=== PATIENT | female | born 1970 | race Caucasian/White ===

== ENCOUNTER 2016-06-04 03:30 | Emergency (ER) | payer MEDICAID ==
[~2016-06-04] VITALS: Ht 157.5 cm; Wt 82.5 kg
[~2016-06-04 03:30] MED LIST: CARAFATE1 GM PO; CREON1 EC2 PO; LOSARTAN POTASS50 M1 PO; LOVASTATIN20 MG PO; NORCO1 TA2 PO; PROTONIX20 MG PO
[2016-06-04 05:30] VITALS: BP 113/76
== END 2016-06-04 05:30 | disposition home or self-care (01) ==
LOC: ED 03:30
DX: G47.00 Insomnia, unspecified (principal); F41.9 Anxiety disorder, unspecified; I10 Essential (primary) hypertension

== ENCOUNTER 2017-06-23 14:02 | Emergency (ER) | payer MEDICAID ==
[~2017-06-23] VITALS: Ht 157.5 cm; Wt 66.7 kg
[2017-06-23 16:04] LABS: microscopic required? NO
[2017-06-23 16:13] LABS: BASOPHIL % 0.6 % (0-2); PLATELET COUNT 263 x10^3mcL (130-400); RED CELL DISTRIBUTION WIDTH 14.2 % (11.5-14.5)
[2017-06-23 16:25] LABS: urine erythrocyte NEGATIVE (NEGATIVE)
[2017-06-23 16:30] LABS: CALCIUM 8.9 mg/dL (8.5-10.1); CARBON DIOXIDE 27.2 mmol/L (21-32); CHLORIDE SERUM 108 mmol/L (98-107); CREATININE SERUM 0.6 mg/dL (0.6-1.0); GFR1 > 60 mL/min; GLUCOSE SERUM 94 mg/dL (74-106); POTASSIUM SERUM 3.4 mmol/L (3.5-5.1); SODIUM SERUM 146 mmol/L (136-145)
[2017-06-23 16:36] LABS: ALBUMIN 3.7 g/dL (3.4-5.0); ALKALINE PHOSPHATASE 78 U/L (46-116); ALT/SGPT 11 U/L (14-59); AST/SGOT 8 U/L (15-37); BILIRUBIN TOTAL 0.11 mg/dL (0.20-1.00); CHOLESTEROL 168 mg/dL (<200); HDL CHOLESTEROL 79 mg/dL (40-60); TOTAL PROTEIN, SERUM 7.1 g/dL (6.4-8.2)
[2017-06-23 18:00] VITALS: BP 131/90
== END 2017-06-23 18:00 | disposition home or self-care (01) ==
LOC: ED 14:02
PROVIDERS: Emergency Medicine
DX: B34.9 Viral infection, unspecified (principal); I10 Essential (primary) hypertension; Z88.6 Allergy status to analgesic agent; Z88.5 Allergy status to narcotic agent; Z88.8 Allergy status to other drugs, medicaments and biological substances
CPT/HCPCS: 83880; 87804; J2405; J3010; J7030

== ENCOUNTER 2017-09-05 09:27 | Emergency (ER) | payer MEDICAID ==
[~2017-09-05] VITALS: Ht 160 cm; Wt 73.9 kg
[2017-09-05 12:03] LABS: BASOPHIL % 1.1 % (0-2); PLATELET COUNT 333 x10^3mcL (130-400)
[2017-09-05 12:15] LABS: CALCIUM 9.5 mg/dL (8.5-10.1); CARBON DIOXIDE 29.1 mmol/L (21-32); CHLORIDE SERUM 105 mmol/L (98-107); CREATININE SERUM 0.9 mg/dL (0.6-1.0); GFR1 > 60 mL/min; GLUCOSE SERUM 90 mg/dL (74-106); POTASSIUM SERUM 4.4 mmol/L (3.5-5.1); SODIUM SERUM 139 mmol/L (136-145)
[2017-09-05 12:20] LABS: ALBUMIN 4.1 g/dL (3.4-5.0); ALKALINE PHOSPHATASE 89 U/L (46-116); ALT/SGPT 16 U/L (14-59); AMYLASE 72 U/L (25-115); AST/SGOT 15 U/L (15-37); BILIRUBIN TOTAL 0.28 mg/dL (0.20-1.00); LIPASE 123 IU/L (73-393); TOTAL PROTEIN, SERUM 7.8 g/dL (6.4-8.2)
[2017-09-05 12:25] LABS: RED CELL DISTRIBUTION WIDTH 16.2 % (11.5-14.5)
[2017-09-05 14:13] VITALS: BP 135/79
== END 2017-09-05 14:13 | disposition home or self-care (01) ==
LOC: ED 09:27
PROVIDERS: Specialist
PROC: 3E033GC Introduction of Other Therapeutic Substance into Peripheral Vein, Percutaneous Approach (ICD-10-PCS; principal; 2017-09-05)
PROC: BW21ZZZ Computerized Tomography (CT Scan) of Abdomen and Pelvis (ICD-10-PCS; 2017-09-05)
DX: K59.00 Constipation, unspecified (principal); I10 Essential (primary) hypertension; E07.9 Disorder of thyroid, unspecified; F41.9 Anxiety disorder, unspecified; F99 Mental disorder, not otherwise specified
CPT/HCPCS: 83880; J2405; J3010; J7030; Q0092

== ENCOUNTER 2017-11-01 08:16 | Inpatient (IN) | payer MEDICAID ==
[~2017-11-01] VITALS: Ht 154.9 cm; Wt 74.6 kg
[2017-11-01 08:58] LABS: PLATELET COUNT 332 x10^3mcL (130-400)
[2017-11-01 09:12] LABS: RED CELL DISTRIBUTION WIDTH 17.3 % (11.5-14.5)
[2017-11-01 09:13] LABS: CALCIUM 9.5 mg/dL (8.5-10.1); CARBON DIOXIDE 27.4 mmol/L (21-32); CHLORIDE SERUM 102 mmol/L (98-107); CREATININE SERUM 0.9 mg/dL (0.6-1.0); GFR1 > 60 mL/min; GLUCOSE SERUM 84 mg/dL (74-106); POTASSIUM SERUM 3.3 mmol/L (3.5-5.1); SODIUM SERUM 137 mmol/L (136-145)
[2017-11-01 09:18] LABS: ALBUMIN 4.1 g/dL (3.4-5.0); ALKALINE PHOSPHATASE 76 U/L (46-116); ALT/SGPT 15 U/L (14-59); AST/SGOT 12 U/L (15-37); BILIRUBIN TOTAL 0.4 mg/dL (0.20-1.00); LIPASE 122 IU/L (73-393); TOTAL PROTEIN, SERUM 7.8 g/dL (6.4-8.2)
[2017-11-01 10:19] LABS: BAND NEUTROPHIL 0 % (0-10); BASOPHIL 2 % (0-2); MONOCYTE 9 % (0-7); PLATELET MORPHOLOGY PLATELETS NORMAL; SEGMENTED NEUTROPHILS 52 % (37-75); rbc morphology (normal/abnorm) ABNORMAL (NORMAL)
[2017-11-01] MEDS ORDERED: CRESTOR5 M1 (11:59)
[2017-11-01] MEDS ORDERED: NOR5 (11:59)
[2017-11-01] MEDS ORDERED: HYZAAR1 TAB (11:59)
[2017-11-01] MEDS ORDERED: PEPTO BISM262 MG/11 (12:00)
[2017-11-01] MEDS ORDERED: ZANAFLEX CAPSULE4 MG (12:01)
[2017-11-01 12:55] LABS: MAGNESIUM 1.7 mg/dL (1.8-2.4); PHOSPHOROUS 3.7 mg/dL (2.5-4.9)
[2017-11-01 13:06] LABS: FREE T4 0.99 ng/dL (0.76-1.46); FREE THYROXINE INDEX 2.5 ug/dL (1.4-4.5); T4(THYROXINE) 6.9 ug/dL (4.7-13.3)
[2017-11-01 13:07] LABS: T3 TOTAL 1.21 ng/mL
[2017-11-01 13:13] VITALS: BP 120/74
[2017-11-01 15:33] LABS: UA SPECIFIC GRAVITY >=1.030 (1.005-1.035); microscopic required? NO; urine erythrocyte NEGATIVE (NEGATIVE)
[2017-11-01 21:23] VITALS: BP 113/69
[2017-11-02 05:11] VITALS: BP 124/81
[2017-11-02 07:01] LABS: PLATELET COUNT 284 x10^3mcL (130-400)
[2017-11-02 07:03] LABS: CALCIUM 8.4 mg/dL (8.5-10.1); CARBON DIOXIDE 27.5 mmol/L (21-32); CHLORIDE SERUM 108 mmol/L (98-107); CREATININE SERUM 0.7 mg/dL (0.6-1.0); GFR1 > 60 mL/min; GLUCOSE SERUM 75 mg/dL (74-106); POTASSIUM SERUM 3.5 mmol/L (3.5-5.1); SODIUM SERUM 141 mmol/L (136-145)
[2017-11-02 07:05] LABS: RED CELL DISTRIBUTION WIDTH 17.1 % (11.5-14.5)
[2017-11-02 08:31] VITALS: BP 115/78
[2017-11-02 09:04] LABS: ATYPICAL LYMPH 2 %; BAND NEUTROPHIL 0 % (0-10); BASOPHIL 0 % (0-2); MONOCYTE 7 % (0-7); SEGMENTED NEUTROPHILS 39 % (37-75); rbc morphology (normal/abnorm) ABNORMAL (NORMAL)
[2017-11-02 09:05] LABS: PLATELET MORPHOLOGY PLATELETS NORMAL
[2017-11-02 14:07] VITALS: BP 115/78
== END 2017-11-02 14:27 | disposition home or self-care (01) | DRG 249 ==
LOC: ED 08:16 → MU 12:05
PROVIDERS: Emergency Medicine; Family Medicine
DX: A08.4 Viral intestinal infection, unspecified (principal); C73 Malignant neoplasm of thyroid gland; D64.9 Anemia, unspecified; E86.0 Dehydration; E78.5 Hyperlipidemia, unspecified; E87.6 Hypokalemia; K21.9 Gastro-esophageal reflux disease without esophagitis; I10 Essential (primary) hypertension
CPT/HCPCS: 84439; 87046; 87046-59; C9113; J1170; J1200; J1644; J2550; J2765; J3010; J3480; J7030; Q0092

== ENCOUNTER 2018-02-19 16:19 | Emergency (ER) | payer MEDICAID ==
[~2018-02-19] VITALS: Ht 157.5 cm; Wt 71.7 kg
[~2018-02-19 16:19] MED LIST changes: +CRESTOR5 M1; +HYZAAR1 TAB; +NOR5; +PEPTO BISM262 MG/11; +ZANAFLEX CAPSULE4 MG
[2018-02-19 16:34] VITALS: Ht 157.5 cm; Wt 71.7 kg
[2018-02-19 17:50] VITALS: BP 128/78
== END 2018-02-19 17:50 | disposition home or self-care (01) ==
LOC: ED 16:19
DX: S61.251A Open bite of left index finger without damage to nail, initial encounter (principal); T63.091A Toxic effect of venom of other snake, accidental (unintentional), initial encounter; I10 Essential (primary) hypertension; F41.9 Anxiety disorder, unspecified; Z88.6 Allergy status to analgesic agent; Z88.5 Allergy status to narcotic agent; Z88.8 Allergy status to other drugs, medicaments and biological substances; Z90.89 Acquired absence of other organs; Z98.890 Other specified postprocedural states; Y92.89 Other specified places as the place of occurrence of the external cause
CPT/HCPCS: 90715

== ENCOUNTER 2018-11-25 07:16 | Emergency (ER) | payer MEDICAID ==
[~2018-11-25] VITALS: Ht 154.9 cm; Wt 71.2 kg
[2018-11-25 07:20] VITALS: Ht 154.9 cm; Wt 71.2 kg
[2018-11-25 07:49] LABS: PLATELET COUNT 247 x10^3mcL (130-400)
[2018-11-25 07:51] LABS: BASOPHIL % 4.7 % (0-2); RED CELL DISTRIBUTION WIDTH 15.3 % (11.5-14.5)
[2018-11-25 08:00] LABS: CALCIUM 8.4 mg/dL (8.5-10.1); CARBON DIOXIDE 24.9 mmol/L (21-32); CHLORIDE SERUM 106 mmol/L (98-107); CREATININE SERUM 0.7 mg/dL (0.6-1.0); GFR1 > 60 mL/min; GLUCOSE SERUM 97 mg/dL (74-106); POTASSIUM SERUM 4.2 mmol/L (3.5-5.1); SODIUM SERUM 140 mmol/L (136-145)
[2018-11-25 08:04] LABS: ALBUMIN 3.6 g/dL (3.4-5.0); ALKALINE PHOSPHATASE 75 U/L (46-116); ALT/SGPT 13 U/L (14-59); AST/SGOT 9 U/L (15-37); BILIRUBIN TOTAL 0.2 mg/dL (0.20-1.00); LIPASE 153 IU/L (73-393); TOTAL PROTEIN, SERUM 6.6 g/dL (6.4-8.2)
[2018-11-25 11:26] VITALS: BP 115/81
== END 2018-11-25 11:26 | disposition home or self-care (01) ==
LOC: ED 07:16
PROVIDERS: Emergency Medicine
DX: K57.90 Diverticulosis of intestine, part unspecified, without perforation or abscess without bleeding (principal); R55 Syncope and collapse; D64.9 Anemia, unspecified
CPT/HCPCS: 36415